=== PATIENT | male | born 1995 | race Caucasian/White ===

== ENCOUNTER → 2023-01-21 14:19 | Outpatient (BNVA) | payer OTHER, SELFPAY | PROVIDERS: Visit Provider Surgery | DX: Z13.89 Encounter for screening for other disorder (principal) ==

== ENCOUNTER 2023-02-09 08:39 | Outpatient (REF) | payer OTHER, SELFPAY ==
--- NOTE | ~2023-02-09 | US_ITS ---
EXAMINATION: US ABDOMEN LIMITED CLINICAL INFORMATION: Cyst of spleen, 7.[address]. Please evaluate for solid/vascular components. COMPARISON: CT abdomen and pelvis without contrast 01/20/2023. TECHNIQUE: Real-time imaging of the abdominal viscera. FINDINGS: LEFT KIDNEY: 8 mm benign-appearing renal cyst, no follow-up imaging recommended. No hydronephrosis or renal calculi. The kidney measures 11.6 cm in maximum dimension. SPLEEN: A 5.7 x 7.2 x 8.6 cm splenic lesion with homogeneous low level echoes and peripheral calcification. It is unclear if there is true internal vascularity based on the provided images versus technical artifact. The spleen measures 15.6 cm in maximum dimension. FREE FLUID: None. US/US abdomen limited IMPRESSION: An 8.6 cm peripherally calcified splenic lesion does not definitively reflect a simple cyst though may reflect a complex cyst. It is difficult to discern if vascularity is present therefore contrast-enhancement MR may be obtained for definitive characterization.
== END 2023-02-09 08:40 | disposition home or self-care (01) ==
LOC: HO.US 08:39
PROVIDERS: Visit Provider Surgery
DX: D73.4 Cyst of spleen (principal)
CPT/HCPCS: 76705

== ENCOUNTER → 2023-02-18 08:47 | Outpatient (BNVA) | payer OTHER, SELFPAY | PROVIDERS: Visit Provider Surgery ==

== ENCOUNTER 2023-05-24 06:09 | Inpatient (IN) | payer OTHER, SELFPAY ==
[2023-05-17 13:15] VITALS: BP 120/78; PULSE 60; RESP 20; O2SAT 98; BMI 26.8
--- NOTE | 2023-05-17 13:21 | HO.ANESPROP2 ---
HPI - Anesthesia Eval Consult details Narrative: 28yo M for laparoscopic possible open fenestration of splenic cyst, 05/24/23 No recent illnes No CP/SOB with stairs Otherwise healthy [facility] Active Problems Active Problems: All Active Problems (Updated 05/17/23 @ 13:14 by Evonne Blackmon RN) Splenic cyst, acquired (Acute) Appendicitis (Acute) Past Medical History Medical History Splenic cyst Family History Family History Paternal Grandfather Pancreatic cancer Family history of problems with anesthesia: No Surgical History Surgical History History of surgery (2019) History of Problems with Anesthesia: No Social History Social History Are you a primary manager intensive care unit to a significant other at home: No Do you presently have visiting nurse or other home services: No Alcohol intake: current Alcohol intake frequency: holidays/special occasions only Patient Tobacco Use Status: Never used Tobacco Have you been hit, kicked, punched, or otherwise hurt by someone within the past year? If so, by whom?: No Are you DNR?: No Advance Directives: No Advance Directives Information Provided: Yes Advance Directives on File: No Recently lost weight without trying: No Eating poorly because of decreased appetite: No Nutrition Risks: No Nutritional Risk Poor oral hygiene: No Meds Allergies Allergy/AdvReac Type Severity Reaction Status Date / Time Sulfa (Sulfonamide Allergy Mild Rash Verified 02/18/23 09:30 Antibiotics) Home Medications Medication Instructions Recorded Confirmed Last Taken Type No Known Home Meds 01/21/23 05/17/23 Unknown History Exam Exam Date and Time: May 17, 2023 1321 Airway Mallampati Class: I TM Dist: >3cm Neck ROM: Full Loose/Missing/Broken Teeth: No Heart: RRR Lungs: CTAB Assessment and Plan Assessment Anesthesia Assessment: Anesthesia Plan Discussed and PAT Visit Final Anesthetic Review Family History of Problems with Anesthesia: No History of Problems with Anesthesia: No
[2023-05-17 14:35] LABS: Hematocrit 44.2 % (42.0-52.0); Hemoglobin 15.7 g/dl (14.0-18.0); Mean Corpuscular HGB Conc 35.5 g/dl (31.0-36.0); Mean Corpuscular Hemoglobin 30.7 pg (27.0-33.0); Mean Corpuscular Volume 86.3 fL (80.0-98.0); Mean Platelet Volume 10.5 fL (9.4-12.4); Platelet Count 250 X10*3/uL (160-400); Red Blood Count 5.12 X10*6/uL (4.60-5.80); Red Cell Distribution Width 11.5 % (11.0-16.0)
[2023-05-24] VITALS (20 sets, daily range): BP systolic 108–148; BP diastolic 69–107; PULSE 51–83; RESP 14–24; TEMP 36–36.4; O2SAT 93–99; BMI 26.9
[2023-05-24] MEDS: Lactated Ringers 1,000 ML 100 ML IVCONT (06:37)
--- NOTE | 2023-05-24 07:22 | MHC.SHP ---
Pre-Procedural Eval Section A Date of Service: 05/24/23 The patient is an INPATIENT: No Changes since office visit: Yes Patient answered all questions; No Cold of Flu in the past 2 weeks, No New Medical Problems and No Changes in Medication The History & Physical has been completed within 30 days and I have reviewed it.: No Section B Chief Complaint: Splenic Cyst Details of Present Illness: remote history of Back trauma, pain in left flank, CT identified large splenic cyst 7-8 cm diameter. Relevant Family History (Specify if Yes): No Relevant Social History: None Present Medications: see Short Stay Collaborative assessment Medical History: No relevant PMH History of Previous Operations: No relevant previous surgery Allergies: Allergies Allergy/AdvReac Type Severity Reaction Status Date / Time Sulfa (Sulfonamide Allergy Mild Rash Verified 02/18/23 09:30 Antibiotics) Review of Systems Sugical H&P ROS: Negative: Constitution, Cardiovascular, Respiratory, Neurological, Psychiatric, Hem-Onc, Allergic/Immunologic, Genitourinary, Musculoskeletal, Integumentary, Endocrine and Eyes/Ears/Nose/Throat and Yes, Specify: Gastrointestinal ( Abdominal pain left flank) Exam Surgical H&P Exam: Normal: HEENT, Normal: Heart, Normal: Lungs, Normal: Extremities, Normal: Abdomen, Normal: Skin and Normal: Neurological Plan Diagnosis/Plan: Unchanged I have reviewed the history and physical and performed a pertinent physical examination on my patient. No changes have occurred unless specified. Time Spent With Patient Time: Total time managing care of this patient today ____ minutes.
[2023-05-24] MEDS: ceFAZolin Sodium/Dextrose,Iso 2 GM/50 ML PIGGYBACK IV (07:46)
--- NOTE | 2023-05-24 08:06 | P.CONAN_ITS ---
[facility] Active Problems Active Problems: All Active Problems (Updated 05/17/23 @ 13:14 by Evonne Blackmon RN) Splenic cyst, acquired (Acute) Appendicitis (Acute) Past Medical History Medical History Splenic cyst Functional capacity: independent ambulation Family History Family History Paternal Grandfather Pancreatic cancer Family history of problems with anesthesia: No Surgical History Surgical History History of surgery (2019) History of Problems with Anesthesia: No Social History Social History Are you a primary hearing healthcare practitioner to a significant other at home: No Do you presently have visiting nurse or other home services: No Alcohol intake: current Alcohol intake frequency: holidays/special occasions only Patient Tobacco Use Status: Never used Tobacco Have you been hit, kicked, punched, or otherwise hurt by someone within the past year? If so, by whom?: No Are you DNR?: No Advance Directives: No Advance Directives Information Provided: Yes Advance Directives on File: No Recently lost weight without trying: No Eating poorly because of decreased appetite: No Nutrition Risks: No Nutritional Risk Poor oral hygiene: No Meds Allergies Allergy/AdvReac Type Severity Reaction Status Date / Time Sulfa (Sulfonamide Allergy Mild Rash Verified 02/18/23 09:30 Antibiotics) Active Medications: Current Medications Lactated Ringer's (Lr) 1,000 mls @ 100 mls/hr IVCONT .Q10H SUNNI Last Admin: 05/24/23 06:37 Dose: 100 mls/hr Home Medications Medication Instructions Recorded Confirmed Last Taken Type No Known Home Meds 01/21/23 05/17/23 Unknown History Exam Exam Date and Time: May 24, 2023 0806 Height,Weight and Vital Signs: Height 5 ft 8 in Weight 80.1 kg Last Vital Signs Temp 97.4 F 05/24/23 06:28 Pulse 66 05/24/23 06:28 Resp 16 05/24/23 06:28 BP 108/82 05/24/23 06:28 Pulse Ox 99 05/24/23 06:28 O2 Del Method Room Air 05/24/23 06:28 Pertinent Lab Results Pertinent Lab Results: Laboratory Tests 05/17/23 05/17/23 13:55 13:56 WBC 6.0 RBC 5.12 Hgb 15.7 Hct 44.2 MCV 86.3 MCH 30.7 MCHC 35.5 RDW 11.5 Plt Count 250 MPV 10.5 Absolute Nucleated RBC 0.000 Nucleated RBC % (auto) 0.0 Blood Type O Positive Antibody Screen NEGATIVE Airway Mallampati Class: I TM Dist: >3cm Neck ROM: Full Heart: RRR Lungs: CTA Assessment and Plan Final Anesthetic Review Family History of Problems with Anesthesia: No History of Problems with Anesthesia: No ASA Class: II Final Preanesthetic Review: Meds/Allgs Chart Reviewed, Consent Obtained/Reviewed and Anes Risks/Benef Reviewed Patient Risk: Intermediate Procedure Risk: Low Anesthetic Plan Anesthetic Plan: GA Disposition: Standard PACU
--- NOTE | 2023-05-24 08:48 | W.PM.OPN ---
Operative Note Operative Note Date of Service: 05/24/23 Narrative: Preoperative diagnosis: splenic cyst Postoperative diagnosis: splenic cyst Procedure: laparoscopic fenestration splenic cyst Surgeon: Russ Street MD Ophthalmic Medical Assistant: Coreen Leiva PA-C Anesthesia: general endotracheal Indications for procedure: 28-year-old male patient presenting with a large splenic cyst due to a remote history of trauma to the back. Patient on exam tender in the left flank. MRI reveals a 7-8 cm splenic cyst at the superior posterior portion of the spleen. He presents today for fenestration of the splenic cyst. Operative findings: Large splenic cyst at the apex of the spleen Specimen: none Estimated blood loss: 5 mL Complications: none Procedure details: patient was brought to the OR and placed in a supine position. After administering general anesthesia he was placed in a right lateral decubitus position Using a beanbag and pillows. The patient's lower left chest and abdomen were then prepped with ChloraPrep and draped in a sterile fashion. A surgical time-out was called the consent confirmed. Patient received preoperative antibiotics and Venodyne boots were in place. Local anesthesia was then infiltrated in periumbilical region. A 5 mm incision was made umbilicus. Veress needle was then inserted into the abdominal cavity while elevating the abdominal cavity with towel clips. After positive drop test the abdomen was insufflated to a pressure of 15 mmHg. A 5 mm trocar was then inserted. The camera was then inserted in the abdomen Explored. Patient was placed in a reverse Trendelenburg position and rotated to the right. A 2nd 5 mm trocar was then placed in the mid axillary line and a 2nd placed in the anterior axillary line below the ribcage. The spleen was identified and rotated medially. Adhesions overlying the spleen were taken down using LigaSure. Lateral attachments of the spleen were then taken down off of the abdominal wall. A large splenic cyst was noted at the apex of the spleen. This spleen was further mobilized along lateral surface. When good exposure Was obtained a laparoscopic needle was inserted into the cyst. Clear fluid was noted within the cyst. This was then opened further using a hook with electrocautery. A portion of the wall was then excised using the LigaSure. Wounds were then irrigated and suctioned dry. Hemostasis was assured using electrocautery . A 7 Cloin-Pulido drain was then placed along the lateral margin of the spleen. This was brought out through the lateral trocar secured to the skin using a nylon suture. CO2 was then evacuated all trocars removed. Skin was closed in all incisions using a subcuticular 4-0 Polysorb suture. Sterile dressings were then applied. The patient tolerated the procedure well. Sponge, instrument, and needle counts reported as correct. The patient was transferred to PACU in stable condition.
[2023-05-24] MEDS: oxyCODONE HCl Immed Release 5 MG TABLET PO ×3 (09:19→14:20)
[2023-05-24] MEDS: fentaNYL citrate/PF 100 MCG/2 ML VIAL 25 MCG IVPUSH ×4 (09:20→09:40)
[2023-05-24] MEDS: Acetaminophen 1,000 MG/100 ML PIGGYBACK 400 MG IV ×3 (09:24→21:03)
--- NOTE | 2023-05-24 11:44 | PHA.MEDREC ---
Pharmacy Consult ? Medication Reconciliation Pharmacy has completed the medication reconciliation. reviewed med rec done by nursing.
[2023-05-24] MEDS: HYDROmorphone HCl 0.5 MG/0.5 ML SYRINGE IVPUSH ×2 (12:15→19:33)
[2023-05-24] MEDS: Dextrose 5 % and Lactated Ring 1,000 ML 125 ML IVCONT ×2 (12:16→19:38)
[2023-05-25 01:18] VITALS: BP 127/76; PULSE 52; RESP 18; TEMP 36.1; O2SAT 97
[2023-05-25] MEDS: HYDROmorphone HCl 0.5 MG/0.5 ML SYRINGE IVPUSH ×3 (01:24→12:27)
[2023-05-25] MEDS: Dextrose 5 % and Lactated Ring 1,000 ML 125 ML IVCONT (03:44)
[2023-05-25] MEDS: Acetaminophen 1,000 MG/100 ML PIGGYBACK 400 MG IV ×2 (03:46→09:24)
[2023-05-25 06:21] LABS: MANUAL DIFF FLAG NO
[2023-05-25 06:25] LABS: Basophils Percent Auto 0.1 % (0-2); Eosinophils Percent Auto 0.1 % (0-4); Hematocrit 42.1 % (42.0-52.0); Imm Gran Abs Auto 0.06 X10*3/uL (0.00-0.03); Imm Gran Pct Auto 0.4 % (0.0-0.4); Lymphocytes Percent Auto 13.2 % (20-40); Mean Corpuscular HGB Conc 35.6 g/dl (31.0-36.0); Mean Corpuscular Hemoglobin 31.3 pg (27.0-33.0); Mean Corpuscular Volume 87.9 fL (80.0-98.0); Mean Platelet Volume 11.1 fL (9.4-12.4); Monocytes Absolute Auto 1.2 X10*3/uL (0.1-1.2); Monocytes Percent Auto 7.9 % (2-11); Neutrophils Absolute Auto 11.8 x10*3/uL (2.0-8.3); Neutrophils Percent Auto 78.3 % (45-73); Platelet Count 235 X10*3/uL (160-400); Red Blood Count 4.79 X10*6/uL (4.60-5.80); Red Cell Distribution Width 11.8 % (11.0-16.0); White Blood Count 15.1 X10*3/uL (4.8-10.8)
[2023-05-25 07:22] VITALS: BP 119/66; PULSE 58; RESP 18; TEMP 36.4; O2SAT 96
--- NOTE | 2023-05-25 08:07 | P.PNGS_ITS ---
Subjective Subjective Date of Service: 05/25/23 Interval history: Pod 1 following fenestration of splenic cyst. He reports incisional pain mainly in the left upper quadrant. He tolerated regular diet without nausea or vomiting. Current pain medications appear to be helping. Physical Exam Vital Signs: Vital Signs: Last Vital Signs Temp 97.5 F 05/25/23 07:22 Pulse 58 05/25/23 07:22 Resp 18 05/25/23 07:22 BP 119/66 05/25/23 07:22 Pulse Ox 96 05/25/23 07:22 O2 Del Method Room Air 05/25/23 07:22 O2 Flow Rate 2 05/24/23 11:54 BMI result Body Mass Index 26.9 Const: General: no acute distress Nutritional Appearance: well nourished Orientation/consciousness: patient oriented x3 Limitations: no limitations Resp: Other: Breathing comfortably on room air. GI: Other: Trocar incisions are clean, dry, and intact. MATTHEW with approximately 30 cc of serous fluid. The MATTHEW was removed and dry sterile dressings applied. Skin: Other: Warm, dry, no rash Neuro: General: patient oriented x3 Extrem: Other: No edema Objective Data Active Medications Hydromorphone HCl (Hydromorphone Hcl 0.5 Mg/0.5 Ml Syringe) 0.25 mg IVPUSH Q5M PRN; Protocol PRN Reason: Pain, Severe (Pain Scale 7-10) Hydromorphone HCl (Hydromorphone Hcl 0.5 Mg/0.5 Ml Syringe) 0.5 mg IVPUSH Q3H PRN; Protocol PRN Reason: Pain, Severe (Pain Scale 7-10) Last Admin: 05/25/23 07:38 Dose: 0.5 mg Documented By: JOHNA Dextrose/Lactated Ringer's (D5lr) 1,000 mls @ 125 mls/hr IVCONT .Q8H SUNNI Last Admin: 05/25/23 03:44 Dose: 125 mls/hr Documented By: MICHAEL Acetaminophen (Ofirmev) 1,000 mg in 100 mls @ 400 mls/hr IV Q6H SUNNI Stop: 05/25/23 09:44 Last Infusion: 05/25/23 04:21 Dose: 0 mls/hr Documented By: MICHAEL Ondansetron HCl (Ondansetron Hcl 4 Mg/2 Ml Vial) 4 mg IVPUSH QID PRN PRN Reason: Nausea Oxycodone HCl (Oxycodone Hcl Immed Release 5 Mg Tablet) 5 mg PO Q6H PRN PRN Reason: Pain, Moderate(Pain Scale 4-6) Last Admin: 05/24/23 14:20 Dose: 5 mg Documented By: SEVERIANO Sodium Chloride (0.9 % Sodium Chloride Flush 3 Ml Syringe) 3 ml IVFLUSH QSHIFT [facility] Last Admin: 05/25/23 07:05 Dose: Not Given Documented By: JOHAN Non-Admin Reason: IV Running Zolpidem Tartrate (Zolpidem Tartrate 5 Mg Tablet) 5 mg PO BEDTIME PRN PRN Reason: Insomnia Labs 05/25/23 06:11 Labs: Laboratory Results - last 24 hr 05/25/23 06:11 MCV 87.9 MCH 31.3 MCHC 35.6 RDW 11.8 Plt Count 235 MPV 11.1 Immature Gran % (Auto) 0.4 Neut % (Auto) 78.3 H Lymph % (Auto) 13.2 L [place] % (Auto) 7.9 Eos % (Auto) 0.1 Baso % (Auto) 0.1 Lymph # (Auto) 2.0 [place] # (Auto) 1.2 Eos # (Auto) 0.0 Baso # (Auto) 0.0 Abs Immat Gran (auto) 0.06 H Absolute Neuts (auto) 11.8 H Absolute Nucleated RBC 0.000 Nucleated RBC % (auto) 0.0 Procedures Date of Service Date of Service: 05/25/23 Progress Note: A&P Assessment and plan (1) Splenic cyst, acquired: Status: Acute Plan Pod 1 following fenestration of splenic cyst laparoscopic. MATTHEW with minimal output therefore the drain was removed. Encourage out of bed and ambulation. Will check back later for possible discharge to home. Time Spent With Patient Time: Total time managing care of this patient today ____ minutes. Quality Stroke Does the patient have a stroke diagnosis?: No VTE Prior VTE?: No VTE Risk Level:: Surgical - moderate VTE Device Contraindication: N/A - Device Ordered VTE Drug Contraindication: Treatment Not Indicated
--- NOTE | 2023-05-25 11:28 | MHC.CM.PN ---
pt is indepedenty c plan home no services
--- NOTE | 2023-05-25 13:45 | HO.POSTANES ---
Post Anesthesia Evaluation Post Anesthesia Evaluation Date of Service: 05/25/23 Vital Signs: Vital Signs Temp Pulse Resp BP Pulse Ox O2 Del Method 05/25/23 07:22 97.5 F 58 18 119/66 96 Room Air Anesthesia: General Endotracheal-GETA Mental Status: Awake Pain Control: Satisfactory Nausea/Vomiting: None Hydration: Adequate Anesthesia-Related Issues: No Anes. Related Issues
--- NOTE | 2023-05-25 15:30 | MHC.CM.PN ---
patient is discharged to home today self care. He has arranged for transportation.
--- NOTE | 2023-05-31 10:25 | PM.DS ---
DS: Providers Provider Date of Service: 05/25/23 Date of admission: 05/24/23 06:09 Primary care physician: Bridget Physician Attending physician on admission: Russ Street Attending physician on discharge: Russ Street DS: Diagnosis Discharge Diagnosis (1) Splenic cyst, acquired: Status: Acute DS: Summary Hospital Course Hospital Course: HPI AT ADMISSION: 28-year-old male patient presenting with a large splenic cyst due to a remote history of trauma to the back. Patient on exam tender in the left flank. MRI reveals a 7-8 cm splenic cyst at the superior posterior portion of the spleen. He presents today for fenestration of the splenic cyst. HOSPITAL COURSE: On 05/24/23, a laparoscopic fenestration splenic cyst was performed by Dr. Street without complication. He was found to have a large splenic cyst at the apex of the spleen. The patient tolerated the procedure well and had an uncomplicated recovery course. On POD #1, he felt overall well with good pain control on oral analgesics. He was tolerating a solid diet without nausea or vomiting. He was ambulating. His abdomen was benign with appropriate post op pain control and clean/intact dressings. His MATTHEW had scanty serous drainage and was removed. He was reassessed later in the day and felt ready for discharge. He was discharged to home on 05/31/23 in stable condition. He is to follow up in the office in 1 week. Status at Discharge Functional status at discharge: independent ambulation Overall status at discharge: patient is progressing back to baseline Time Spent with Patient Time attestation: Total time managing care of this patient today ____ minutes. Discharge coordination time: Less than 30 minutes Quality: Safe Use of Opioids Does Pt have an Active Cancer Diagnosis on the Problem List?: No Quality: Stroke Does the patient have a stroke diagnosis?: No Physical Exam Vital Signs: Vital Signs: Last Vital Signs Temp 97.5 F 05/25/23 07:22 Pulse 58 05/25/23 07:22 Resp 18 05/25/23 07:22 BP 119/66 05/25/23 07:22 Pulse Ox 96 05/25/23 07:22 O2 Del Method Room Air 05/25/23 07:22 O2 Flow Rate 2 05/24/23 11:54 BMI result Body Mass Index 26.9 Const: General: comfortable, no acute distress and alert Orientation/consciousness: patient oriented x3 Resp: Effort & Inspection: normal respiratory effort GI: Other: MATTHEW removed Inspection: No distended and Yes incision (dressings c/d/i) Palpation (GI): Soft to palpation, Tenderness to palpation present (GI) (mild incisional), no guarding and not rigid Percussion: Yes normal to percussion Skin: General skin exam: no rashes or lesions noted Neuro: General: patient oriented x3 DS: Data Data Completed and Pending Completed studies during hospitalization [Text1]: Procedures Drainage of Spleen, Percutaneous Endoscopic Approach (05/24/23) Discharge Plan Discharge Anticipated Discharge Date/Time: 05/25/23 15:31 Patient Disposition: Home, Self-Care Discharge Diagnosis: splenic cyst Referrals: Russ Street MD [Physician] - 1 Week Physician,Bridget Westfall [Primary Care Provider] - 1 Week Discharge Medications: New oxycodone 5 mg tablet 5 mg PO Q4H PRN (Reason: pain (scale score 7-10)) Qty: 20 0RF Rx Instructions: Partial Fill upon patient request. Discharge Orders: Discharge Order (Routine); Ordered 05/25/23 Ordered By: Russ Street Diet: Advance to usual diet Activity on Discharge: No heavy lifting Stand Alone Forms: Patient Portal Discharge page Activity Restrictions/Additional Instructions: If the incision area is tender, you may apply an ice pack for short intervals (No more than 20 minutes on, followed by at least 20 minutes off). Do not apply heat. Do not use creams, lotions, or topical antibiotics. These can cause infection or allergic reaction. Ok to shower. Remove clear dressings 3 days following your procedure. You have steri strips (small white cloth strips) covering your incision- these will fall off ~1 week. No heavy lifting (>10lbs) or strenuous activity! Follow up in office with Dr. Street in 1 week. ([phone]) Call Your Doctor If: -Your temperature exceeds 101.5? F -You experience excessive pain or swelling -You have an unexpected reaction to medication -You have excessive bleeding -You experience continued vomiting/nausea -Your incision begins to separate -Your incision shows signs of infection such as increased redness, swelling, excessive pain, drainage (light blood or clear fluid is normal) or heat Care Plan Goals: Return to baseline health and resume normal activities following recovery period. Health Concerns: splenic cyst Plan of Treatment: laparoscopic fenestration splenic cyst follow up in office in 1 week Assessment: Doing well post op Discharge Date/Time: 05/25/23 15:32
== END 2023-05-25 15:32 | disposition home or self-care (01) | DRG 663 ==
LOC: HO.SSSA 06:11 → HO.S3 10:23
PROVIDERS: Nurse Practitioner; Admitting Provider Surgery; Visit Provider Surgery
PROC: 07TP4ZZ Resection of Spleen, Percutaneous Endoscopic Approach (ICD-10-PCS; CPT 38120; principal; 2023-05-24 07:30)
DX: D73.4 Cyst of spleen (principal); Z88.2 Allergy status to sulfonamides
CPT/HCPCS: 36415; 85025; 85027; 86850; 86900; 86901; 99221; J0131; J0690; J1100; J1170; J2250; J2405; J3010

== ENCOUNTER → 2023-05-24 06:09 | Outpatient (BNV) | payer OTHER, SELFPAY | PROVIDERS: Admitting Provider Surgery; Visit Provider Surgery | DX: D73.4 Cyst of spleen (principal) | CPT/HCPCS: 38129; 99024; 99238 ==

== ENCOUNTER 2023-06-03 09:49 | Outpatient (AMB) | payer OTHER, SELFPAY ==
--- NOTE | 2023-06-03 09:59 | MHC.OFFVIS ---
Intake Vital Signs 06/03/23 10:06 Height 5 ft 8 in Weight 172 lb 8 oz BMI 26.2 BP 126/87 Blood Pressure Location Lt brachial Position Sitting Pulse 84 Intake Visit Reasons: S/P fenestration of splenic cyst Intake Note: Patient is seen in office for post op assessment post fenestration of splenic cyst. Patient c/o: admits to minimal swelling and bruising in the area, eating well and healing as expected Ammonia Solution Preparer Required: No Accompanied by: Family/Other Allergies Sulfa (Sulfonamide Antibiotics) Allergy (Mild, Verified 06/03/23 10:05) Rash Medication List - Last Reconciled 06/03/[address] MD No Known Home Meds HPI HPI Comments History of Present Illness Details 28-year-old male returning 1 week following a fenestration procedure for a large splenic cyst. He was discharged home on postop day 1. He feels well and denies any ongoing abdominal symptoms. He did have some incisional pain which is improving now. He reports normal appetite and normal bowels. [facility] Medical History Splenic cyst Splenic cyst, acquired Surgical History History of surgery (2019) S/P laparoscopic splenectomy (05/24/23) Family History Paternal Grandfather Pancreatic cancer Social History Household Members: Spouse Housing: Apartment Are you a primary rn coronary care unit to a significant other at home: No Do you presently have visiting nurse or other home services: No Alcohol intake: current Alcohol intake frequency: holidays/special occasions only Patient Tobacco Use Status: Never used Tobacco service: No Physical Exam Vital Signs: Last Vital Signs Pulse 84 06/03/23 10:06 BP 126/87 06/03/23 10:06 BMI result Body Mass Index 26.2 Const General: no acute distress Nutritional Appearance: well nourished Orientation/consciousness: patient oriented x3 Limitations: no limitations Resp Effort & Inspection: normal respiratory effort GI Other: Soft, nondistended, nontender, well-healed trocar incisions. Skin Other: Warm, dry, no rash Neuro General: patient oriented x3 Extrem General: Yes no clubbing, cyanosis or edema Assessment & Plan Assessment & Plan (1) Splenic cyst, acquired: Code(s): D73.4 - Cyst of spleen Plan Patient returns 1 week following fenestration procedure for splenic cyst. Tolerated the procedure well and his wounds are healing nicely. He may resume normal activity without restriction and should follow up as needed. Coding Level of Care Code Global (32805) Diagnoses Splenic cyst, acquired D73.4
[2023-06-03 10:06] VITALS: BP 126/87; PULSE 84; BMI 26.2
== END 2023-06-03 10:33 | disposition home or self-care (01) ==
PROVIDERS: Visit Provider Surgery
DX: D73.4 Cyst of spleen (principal)
CPT/HCPCS: 99024

== ENCOUNTER → 2023-06-03 09:49 | Outpatient (BNVA) | payer OTHER, SELFPAY | PROVIDERS: Visit Provider Surgery ==